=== PATIENT | female | born 1995 | race Caucasian/White ===

== ENCOUNTER 2016-11-14 12:13 | Emergency (ER) | payer OTHER ==
[~2016-11-14] VITALS: Ht 160 cm; Wt 49.0 kg
[2016-11-14] MEDS ORDERED: birth control pill (12:34)
[2016-11-14] MEDS ORDERED: ZOFRAN4 M3 ORAL (13:41)
[2016-11-14] MEDS ORDERED: Metoclopramide 10mg/10ml Liq ORAL ONE (13:45)
[2016-11-14 13:55] VITALS: BP 124/78
--- NOTE | 2016-11-14 15:43 | Emergency Room Report ---
History of Present Illness General Chief Complaint: Vomiting Source: Patient Present Illness HPI The patient is a 21-year-old female presenting with abdominal pain, nausea, and vomiting which began last night after she states she had excessive alcohol. Abdominal pain is described as a 5/10 dull ache to the mid upper abdomen. Pain is nonradiating. The pain is worse with vomiting. The patient states the vomit is clear to yellow. The patient states she has had 5 or 6 episodes of vomiting since last night. The patient denies hematemesis. Patient denies other symptoms including fever, chills, dizziness, blurred vision, altered level of consciousness, diarrhea, melena, hematochezia Allergies: Coded Allergies: PENICILLINS (Verified Allergy, Unknown, 11/14/16) Patient History Past Medical History: see triage record Pertinent Family History: none Social History: Reports: alcohol use Last Menstrual Period: 3 weeks ago Now: No Reviewed Nursing Documentation: PMH: Agreed, PSxH: Agreed Nursing Documentation-PMH Past Medical History: No Stated History Review of Systems All Other Systems: negative except mentioned in HPI Physical Exam Vital Signs Date Time Temp Pulse Resp B/P Pulse Ox O2 Delivery O2 Flow Rate FiO2 11/14/16 12:31 98.6 108 17 118/73 97 Room Air Sp02 EP Interpretation: reviewed, normal General Appearance: no apparent distress, alert, GCS 15, non-toxic Head: normocephalic, atraumatic Eyes: bilateral eye PERRL, bilateral eye normal inspection ENT: hearing grossly normal, normal pharynx, no angioedema, normal voice Neck: full range of motion, supple/symm/no masses Respiratory: chest non-tender, lungs clear, normal breath sounds, no wheezing, speaking full sentences Gastrointestinal: normal bowel sounds, no guarding, tenderness - epigastric Musculoskeletal: back normal, gait/station normal, normal range of motion, non- tender Neurologic: alert, oriented x3, responsive, motor strength/tone normal, sensory intact, speech normal Psychiatric: judgement/insight normal, memory normal, mood/affect normal, no suicidal/homicidal ideation Skin: normal color, no rash, warm/dry, well hydrated Lymphatic: no adenopathy Medical Decision Making PA Attestation Dr. Lauren is my supervising physician. Patient management was discussed with my supervising physician Diagnostic Impression: Primary Impression: Nausea & vomiting ER Course The patient is a 21-year-old female presenting with abdominal pain, nausea, and vomiting DDx: gastroenteritis, gastritis, dehydration PE: afebrile. NAD HEENT unremarkable. Lungs CTA bilat Abd: Normal BS. soft. TTP over epigastric region SKin is warm and dry. The pt is given motrin and zofran and is beginning to feel better. Pt able to tolerate liquids in the ED The pt is given reglan and will be DC'ed home with a prescription for zofran. ER precautions given and the pt will take in plenty of fluids. Last Vital Signs Date Time Temp Pulse Resp B/P Pulse Ox O2 Delivery O2 Flow Rate FiO2 11/14/16 13:55 97.8 94 17 124/78 98 Room Air Status: improved Disposition: HOME, SELF-CARE Condition: Improved Scripts Ondansetron* (ZOFRAN*) 4 Mg Tablet 4 MG ORAL Q6H Y for Nausea & Vomiting, #15 TAB Prov: RADHA REECE 11/14/16 Patient Instructions: Nausea and Vomiting, Adult, Alcohol Abuse and Nutrition Additional Instructions: I discussed my findings with the patient. All questions and concerns have been answered. Treatment and medication compliance have been addressed. I advised the patient that they need to follow up with PMD in 3-5 days. Return to ED if symptoms worsen, new symptoms arise, or if needed for any reason. Patient verbalized understanding of discharge instructions. RADHA REECE Nov 14, 2016 15:43
== END 2016-11-14 13:57 | disposition home or self-care (01) ==
LOC: EMR 12:45
DX: R11.2 Nausea with vomiting, unspecified (principal); R10.9 Unspecified abdominal pain; Z88.0 Allergy status to penicillin
CPT/HCPCS: 99283